=== PATIENT | female | born 1985 | race American Indian/Alaskan Native ===

== ENCOUNTER 2017-04-26 14:58 | Outpatient (CLI) | payer MEDICAID ==
[2017-04-26 15:30] VITALS: BP 119/62
[2017-04-26] MEDS ORDERED: VISTARIL ONE (17:39)
[2017-04-26] MEDS ORDERED: VISTARIL PO ONE (18:00)
== END 2017-04-26 18:00 | disposition home or self-care (01) ==
LOC: TRG 14:58
PROVIDERS: ATTEND Obstetrics & Gynecology
DX: Z34.93 Encounter for supervision of normal pregnancy, unspecified, third trimester (principal); Z3A.38 38 weeks gestation of pregnancy
CPT/HCPCS: 59025; Q0177

== ENCOUNTER 2017-05-06 11:10 | Inpatient (IN) | payer MEDICAID, OTHER ==
--- NOTE | 2017-05-06 12:36 | History and Physical Report ---
History of Present Illness Date of examination: 05/06/17 Date of admission: 05/06/17 11:12 Chief complaint: SROM at 03:00 today History of present illness: 32-year-old at 40+1 weeks presents with above complaints and issues, she is a [facility] patient. 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 denies: smoking, alcohol abuse, prescription drug abuse, IV drug use - Obstetrical History Expected Date of Delivery: 05/05/17 Actual Gestation: 40 Week(s) 1 Day(s) : 4 Para: 3 Medications and Allergies Allergies Allergy/AdvReac Type Severity Reaction Status Date / Time No Known Allergies Allergy Unverified 04/26/17 15:11 Review of Systems Constitutional: no fever, no chills, no sweats Cardiovascular: no chest pain, no orthopnea, no palpitations, no syncope, no lightheadedness, no shortness of breath Respiratory: no cough, no cough with sputum, no excessive sputum, no shortness of breath, no dyspnea on exertion Gastrointestinal: no abdominal pain, no nausea, no vomiting Genitourinary: leakage of fluid, no vaginal bleeding, no vaginal discharge - Vital Signs Vital signs: Vital Signs Pulse BP Pulse Ox 87 155/128 98 05/06/17 11:45 05/06/17 11:45 05/06/17 11:45 Temp Pulse Resp BP Pulse Ox 81 125/65 97 05/06/17 12:28 05/06/17 11:47 05/06/17 12:28 - Physical Exam Cardiovascular: Regular rate, Normal S1, Normal S2 Lungs: Positive: Clear to auscultation, Normal air movement Abdomen: Positive: normal appearance, soft. Negative: distention, tenderness, guarding, rigidity Uterus: Positive: enlarged (EFW ~ 3700) Extremities: Positive: normal - Obstetrical FHR: category 1 Cervical Dilatation: 2 (per RN) Results All other labs normal. Assessment and Plan A: 32-year-old 00 today at 40+1 week status post SROM -Cat 1 tracing P: -Admit -Obtain routine labs -Epidural when necessary -Pitocin per protocol -Anticipate normal vaginal delivery - Patient Problems (1) 40 weeks gestation of Current Visit: Yes Status: Acute (2) Spontaneous rupture of amniotic membranes Current Visit: Yes Status: Acute
[2017-05-06] MEDS ORDERED: MINERAL OIL PO PRN (12:37)
[2017-05-06] MEDS ORDERED: BRETHINE SUB-Q PRN (12:37)
[2017-05-06] MEDS ORDERED: SUBLIMAZE IV PRN (12:37)
[2017-05-06] MEDS ORDERED: BRETHINE IVP PRN (12:46)
[2017-05-06] MEDS ORDERED: ePHEDrine SULFATE IV PRN ×2 (12:47→14:08)
[2017-05-06] MEDS ORDERED: PITOCin/NS 30 UNIT/500ML 30 UNITS/500 ML BAG IV SCH (13:00)
[2017-05-06] MEDS ORDERED: XYLOCAINE 2% INFILTRATI ONE (13:00)
[2017-05-06 13:19] LABS: Hematocrit 38.6 % (30.3-42.9); Hemoglobin 12.4 gm/dl (10.1-14.3); Mean Corpuscular HGB Conc 32 % (30-34); Mean Corpuscular Hemoglobin 28 pg (28-32); Mean Corpuscular Volume 88 fl (79-97); Platelet Count 237 K/mm3 (140-440); Red Cell Distribution Width 15.2 % (13.2-15.2); White Blood Count 11.8 K/mm3 (4.5-11.0)
[2017-05-06] MEDS ORDERED: NARCAN 2 MG/2 ML IV PRN (14:03)
--- NOTE | 2017-05-06 14:03 | Anesthesia Consultation ---
Anesthesia Consult and Med Hx Date of service: 05/06/17 - Airway Anesthetic Teeth Evaluation: Good ROM Head & Neck: Adequate Mental/Hyoid Distance: Adequate Mallampati Class: Class II Intubation Access Assessment: Good - Pulmonary Exam CTA: Yes - Cardiac Exam Cardiac Exam: No Murmur - Pre-Operative Health Status ASA Pre-Surgery Classification: ASA2 Proposed Anesthetic Plan: Epidural - Pulmonary Hx Asthma: No - Cardiovascular System Hx Hypertension: No - Central Nervous System Hx Seizures: No Hx Psychiatric Problems: No - Endocrine Hx Renal Disease: No Hx Hypothyroidism: No Hx Hyperthyroidism: No - Hematic Hx Anemia: No Hx Sickle Cell Disease: No - Other Systems Hx Alcohol Use: No
[2017-05-06] MEDS: LACTATED RINGERS 1,000 ML IV SCH ×3 (14:20→18:40)
[2017-05-06] MEDS: PITOCin/NS 30 UNIT/500ML 30 UNITS/500 ML BAG IV SCH ×4 (14:33→18:50)
[2017-05-06] MEDS ORDERED: fentaNYL-BUPIV 2 MCG/ML-0.125% 200 MCG/100 ML BAG EPIDURAL SCH (15:00)
[2017-05-06] MEDS ORDERED: ePHEDrine SULFATE ONE (16:19)
--- NOTE | 2017-05-06 17:15 | Progress Note ---
Assessment and Plan A: 32-year-old 00 today at 40+1 week status post SROM -Cat 1 tracing P: -Continue present care -Anticipate normal vaginal delivery - Patient Problems (1) 40 weeks gestation of Current Visit: Yes Status: Acute (2) Spontaneous rupture of amniotic membranes Current Visit: Yes Status: Acute Subjective - Subjective Date of service: 05/06/17 Interval history: Post epidural, she is 5-6 cm and -2 station with bulging membranes Patient reports: new complaints, movement normal, contractions, no loss of fluid, no vaginal bleeding Objective - Vital Signs Vital Signs: Vital Signs - 12hr 05/06/17 05/06/17 05/06/17 11:45 11:47 12:23 Temperature Pulse Rate 94 H 85 92 H Pulse Rate [ From Monitor] Respiratory Rate Blood Pressure 155/128 125/65 Blood Pressure [Left Arm] O2 Sat by Pulse 98 99 Oximetry 05/06/17 05/06/17 05/06/17 12:28 12:33 13:15 Temperature 98.1 F Pulse Rate 81 84 80 Pulse Rate [ 83 From Monitor] Respiratory 18 Rate Blood Pressure 92/57 Blood Pressure 92/57 [Left Arm] O2 Sat by Pulse 97 97 97 Oximetry 05/06/17 05/06/17 05/06/17 14:33 14:38 14:43 Temperature Pulse Rate 88 98 H 85 Pulse Rate [ From Monitor] Respiratory Rate Blood Pressure 118/62 Blood Pressure [Left Arm] O2 Sat by Pulse 100 100 99 Oximetry 05/06/17 05/06/17 05/06/17 14:48 14:53 14:58 Temperature Pulse Rate 88 84 84 Pulse Rate [ From Monitor] Respiratory Rate Blood Pressure Blood Pressure [Left Arm] O2 Sat by Pulse 99 99 99 Oximetry 05/06/17 05/06/17 05/06/17 15:01 15:03 15:08 Temperature Pulse Rate 96 H 88 90 Pulse Rate [ From Monitor] Respiratory Rate Blood Pressure 114/59 Blood Pressure [Left Arm] O2 Sat by Pulse 99 99 Oximetry 05/06/17 05/06/17 05/06/17 15:13 15:18 15:23 Temperature Pulse Rate 83 89 89 Pulse Rate [ From Monitor] Respiratory Rate Blood Pressure Blood Pressure [Left Arm] O2 Sat by Pulse 99 99 99 Oximetry 05/06/17 05/06/17 05/06/17 15:32 15:33 15:37 Temperature Pulse Rate 96 H 69 82 Pulse Rate [ From Monitor] Respiratory Rate Blood Pressure 99/54 Blood Pressure [Left Arm] O2 Sat by Pulse 94 98 Oximetry 05/06/17 05/06/17 05/06/17 15:42 15:47 15:52 Temperature Pulse Rate 72 79 85 Pulse Rate [ From Monitor] Respiratory Rate Blood Pressure Blood Pressure [Left Arm] O2 Sat by Pulse 99 98 98 Oximetry 05/06/17 05/06/17 05/06/17 15:57 16:02 16:07 Temperature Pulse Rate 86 89 103 H Pulse Rate [ From Monitor] Respiratory Rate Blood Pressure Blood Pressure [Left Arm] O2 Sat by Pulse 98 98 98 Oximetry 05/06/17 05/06/17 05/06/17 16:12 16:17 16:25 Temperature Pulse Rate 91 H 86 88 Pulse Rate [ From Monitor] Respiratory Rate Blood Pressure Blood Pressure [Left Arm] O2 Sat by Pulse 99 98 97 Oximetry 05/06/17 05/06/17 05/06/17 16:30 16:35 16:40 Temperature Pulse Rate 84 86 83 Pulse Rate [ From Monitor] Respiratory Rate Blood Pressure Blood Pressure [Left Arm] O2 Sat by Pulse 100 99 97 Oximetry 05/06/17 05/06/17 05/06/17 16:43 16:45 16:48 Temperature Pulse Rate 84 91 H 99 H Pulse Rate [ From Monitor] Respiratory Rate Blood Pressure 122/68 124/71 Blood Pressure [Left Arm] O2 Sat by Pulse 97 Oximetry 05/06/17 05/06/17 05/06/17 16:50 16:55 16:59 Temperature Pulse Rate 104 H 106 H 96 H Pulse Rate [ From Monitor] Respiratory Rate Blood Pressure 124/71 Blood Pressure [Left Arm] O2 Sat by Pulse 100 100 Oximetry 05/06/17 05/06/17 05/06/17 17:00 17:05 17:07 Temperature Pulse Rate 97 H 83 87 Pulse Rate [ From Monitor] Respiratory Rate Blood Pressure 124/72 Blood Pressure [Left Arm] O2 Sat by Pulse 98 99 Oximetry 05/06/17 05/06/17 05/06/17 17:09 17:10 17:11 Temperature Pulse Rate 83 87 82 Pulse Rate [ From Monitor] Respiratory Rate Blood Pressure 118/71 122/68 Blood Pressure [Left Arm] O2 Sat by Pulse 99 Oximetry - Exam FHR: category 1 Cervical Dilatation: 5.5 station: -2 - Labs Labs: Abnormal Labs 05/06/17 12:56 WBC 11.8 H Laboratory Results - last 24 hr 05/06/17 05/06/17 12:56 12:56 WBC 11.8 H RBC 4.40 Hgb 12.4 Hct 38.6 MCV 88 MCH 28 MCHC 32 RDW 15.2 Plt Count 237 Blood Type B POSITIVE Antibody Screen TNR BRUCE Antibody Screen Negative
[2017-05-06] MEDS ORDERED: CYTOTEC ONE (19:28)
--- NOTE | 2017-05-06 19:51 | Procedure Note ---
OB Delivery Note - Delivery Date of Delivery: 05/06/17 Surgeon: NAKUL HOGAN Estimated blood loss: 200cc - Vaginal Delivery presentation: vertex Delivery position: OA Intrapartum events: meconium Delivery induction: none Delivery augmentation: pitocin Delivery monitor: external FHT, external uterine Route of delivery: Delivery placenta: spontaneous, adherent (bimanual performed for adherent membranes) Delivery cord: 3 umbilical vessels Episiotomy: none Delivery laceration: 1st degree Delivery repair: vicryl Anesthesia: epidural - Infant A at 1 minute: 8 at 5 minutes: 9 Infant Gender: Female (time of delivery was 19:29, infant weight was 7 lbs. 13 oz. or 3550 g)
[2017-05-06] MEDS ORDERED: TYLENOL PO PRN (19:52)
[2017-05-06] MEDS ORDERED: LANSINOH TP PRN (19:52)
[2017-05-06] MEDS ORDERED: DULCOLAX PR PRN (19:52)
[2017-05-06] MEDS ORDERED: PHENERGAN PR PRN (19:52)
[2017-05-06] MEDS ORDERED: NORCO 5/325 PO PRN (19:52)
[2017-05-06] MEDS ORDERED: PHENERGAN PO PRN (19:52)
[2017-05-06] MEDS ORDERED: TUCKS PAD TP PRN (19:52)
[2017-05-06] MEDS ORDERED: BENADRYL PO PRN (19:52)
[2017-05-06] MEDS ORDERED: MILK OF MAGNESIA PO PRN (19:52)
[2017-05-06] MEDS ORDERED: ZOFRAN IV PRN (19:52)
[2017-05-06] MEDS ORDERED: CYTOTEC PR ONE ×2 (19:52→21:00)
[2017-05-06] MEDS ORDERED: ceFAZolin 2 GM in NACL 0.9% 100 ML IV ONE (19:54)
[2017-05-06] MEDS ORDERED: SODIUM CHLORIDE FLUSH SYRINGE 10 ML IV SCH (20:00)
[2017-05-06] MEDS ORDERED: PITOCin/NS 20 UNIT/1000ML DRIP 20 UNITS/1,000 ML BAG IV SCH (20:00)
[2017-05-06] MEDS: PITOCin/NS 20 UNIT/1000ML DRIP 20 UNITS/1,000 ML BAG IV SCH ×2 (20:14→21:45)
[2017-05-06] MEDS ORDERED: DERMOPLAST TP PRN (20:15)
[2017-05-06] MEDS ORDERED: ANCEF/STERILE WATER 2 GM/20 ML 2 GM/20 ML SYRINGE IV ONE (21:00)
[2017-05-06] MEDS ORDERED: PITOCin/NS 20 UNIT/1000ML DRIP 20,000 MILLIUNITS/1,000 ML BAG IV ONE (21:42)
[2017-05-06] MEDS: SENOKOT S PO SCH (22:50)
[2017-05-06] MEDS: FEOSOL PO SCH (22:50)
[2017-05-06] MEDS: MOTRIN PO SCH (22:52)
[2017-05-06] MEDS: COLACE PO SCH (22:53)
[2017-05-07] MEDS: MOTRIN PO SCH ×4 (00:05→18:06)
[2017-05-07 08:11] LABS: Hematocrit 33.2 % (30.3-42.9); Hemoglobin 11.2 gm/dl (10.1-14.3)
--- NOTE | 2017-05-07 09:23 | Progress Note ---
Assessment and Plan PPD# 1 s/p -Doing well P: -Continue present care -Anticipate discharge in 24-48 hours - Patient Problems (1) (normal spontaneous vaginal delivery) Current Visit: Yes Status: Acute (2) 40 weeks gestation of Current Visit: Yes Status: Acute (3) Spontaneous rupture of amniotic membranes Current Visit: Yes Status: Acute Subjective - Subjective Date of service: 05/07/17 Principal diagnosis: PPD#1 Interval history: Patient seen and examined, stable doing well. Has adequate bowel bladder function, ambulating without difficulty pain well-controlled desires discharge home Patient reports: appetite normal, voiding normally, pain well controlled, flatus , ambulating normally, no dizzy ambulation, no nauseated [place]: doing well Objective - Vital Signs Latest vital signs: Vital Signs Temp Pulse Pulse Resp BP BP Pulse Ox 05/07/17 08:17 99 F 85 20 107/71 05/07/17 05:55 18 05/07/17 04:30 98.7 F 71 18 103/61 05/07/17 01:45 98.8 F 79 18 117/67 05/06/17 22:52 18 05/06/17 22:10 98.5 F 70 18 109/55 05/06/17 20:44 97.5 F L 67 71 18 108/67 108/67 98 05/06/17 20:42 70 99 05/06/17 20:37 64 99 05/06/17 20:32 69 98 05/06/17 20:30 81 120/72 05/06/17 20:28 98.3 F 77 60 18 120/72 100 05/06/17 20:27 85 98 05/06/17 20:23 90 05/06/17 20:22 71 100 05/06/17 20:17 74 99 05/06/17 20:12 70 100 05/06/17 20:07 75 99 05/06/17 20:02 80 100 05/06/17 20:00 97.6 F 77 77 18 120/64 120/64 100 05/06/17 19:57 86 100 05/06/17 19:40 98.5 F 76 18 120/64 100 05/06/17 19:25 114 H 100 05/06/17 19:20 135 H 100 05/06/17 19:15 92 H 98 05/06/17 19:10 98.6 F 81 75 18 117/61 99 05/06/17 19:05 74 99 05/06/17 19:01 75 117/61 05/06/17 19:00 74 99 05/06/17 18:55 71 98 05/06/17 18:50 96 H 99 05/06/17 18:45 88 102/55 98 17 18:40 85 98 05/06/17 18:35 77 98 05/06/17 18:32 76 122/58 05/06/17 18:30 75 98 05/06/17 18:25 80 99 05/06/17 18:20 91 H 97 05/06/17 18:17 86 112/62 05/06/17 18:15 76 97 05/06/17 18:10 76 98 05/06/17 18:05 79 99 05/06/17 18:00 76 105/59 97 05/06/17 17:55 89 98 05/06/17 17:50 86 98 05/06/17 17:45 79 110/62 98 05/06/17 17:40 84 111/62 98 05/06/17 17:35 81 117/68 98 05/06/17 17:31 78 116/60 05/06/17 17:30 73 98 05/06/17 17:29 80 116/61 05/06/17 17:27 93 H 117/68 05/06/17 17:25 76 117/62 98 05/06/17 17:24 79 120/64 05/06/17 17:21 82 112/61 05/06/17 17:20 78 98 05/06/17 17:19 83 108/61 05/06/17 17:17 73 115/60 05/06/17 17:15 94 H 112/68 97 05/06/17 17:13 83 123/67 05/06/17 17:11 82 122/68 05/06/17 17:10 87 99 05/06/17 17:09 83 118/71 05/06/17 17:07 87 124/72 05/06/17 17:05 83 99 05/06/17 17:00 97 H 98 05/06/17 16:59 96 H 124/71 17 16:55 106 H 100 05/06/17 16:50 104 H 100 05/06/17 16:48 99 H 124/71 05/06/17 16:45 98.1 F 91 H 91 H 18 122/68 97 05/06/17 16:43 84 122/68 05/06/17 16:40 83 97 05/06/17 16:35 86 99 05/06/17 16:30 84 100 05/06/17 16:25 88 97 05/06/17 16:17 86 98 05/06/17 16:12 91 H 99 05/06/17 16:07 103 H 98 05/06/17 16:02 89 98 05/06/17 15:57 86 98 05/06/17 15:52 85 98 05/06/17 15:47 79 98 05/06/17 15:42 72 99 05/06/17 15:37 82 98 05/06/17 15:33 69 99/54 05/06/17 15:32 96 H 94 05/06/17 15:23 89 99 05/06/17 15:18 89 99 05/06/17 15:13 83 99 05/06/17 15:08 90 99 05/06/17 15:03 88 99 05/06/17 15:01 96 H 114/59 05/06/17 14:58 84 99 05/06/17 14:53 84 99 05/06/17 14:48 88 99 05/06/17 14:43 85 99 05/06/17 14:38 98 H 100 05/06/17 14:33 88 118/62 100 05/06/17 13:15 98.1 F 80 83 18 92/57 92/57 97 05/06/17 12:33 84 97 05/06/17 12:28 81 97 05/06/17 12:23 92 H 99 05/06/17 11:47 85 125/65 05/06/17 11:45 94 H 155/128 98 Intake and Output 05/06/17 05/07/17 05/07/17 22:59 06:59 14:59 Intake Total 1999 840 Output Total 1100 800 Balance 900 40 Intake: IV 2000 Lactated Ringers 1,000 ml 2000 @ 125 mls/hr IV DIRECT JOHN Rx#:[id number] Intake, Free Water 840 Output: Urine 1100 800 Uretheral (Fisher) 250 Void 850 800 Other: Total, Output Amount 400 800 # Voids Void 1 1 Estimated Blood Loss 200 - Exam Abdomen: Present: normal appearance, soft. Absent: distention, tenderness, guarding Uterus: Present: fundal height below umbilicus. Absent: tenderness Extremities: Present: normal - Labs Labs: Abnormal lab results 05/06/17 Range/Units 12:56 WBC 11.8 H (4.5-11.0) K/mm3
--- NOTE | 2017-05-07 09:25 | Discharge Summary ---
Providers - Providers Date of Admission: 05/06/17 11:12 Date of discharge: 05/08/17 Attending physician: NAKUL HOGAN Primary care physician: NAKUL HOGAN Hospitalization Reason for admission: rupture of membranes Delivery: Episiotomy: none Laceration: 1st degree Incision: normal, dry Other procedures: none complications: none Discharge diagnosis: IUP at term delivered baby: female Hospital course: Uncomplicated hospital course Condition at discharge: Good Disposition: DC-01 TO HOME OR SELFCARE - Discharge Diagnoses (1) (normal spontaneous vaginal delivery) Status: Acute (2) 40 weeks gestation of Status: Acute (3) Spontaneous rupture of amniotic membranes Status: Acute Plan - Discharge Medications Prescriptions: Ibuprofen [Motrin 600 MG tab] 600 mg PO Q8H PRN #30 tablet PRN Reason: Pain Multivitamin with Iron [Multivitamins with Iron] 1 each PO DAILY #30 tablet - Provider Discharge Summary Activity: no sex for 6 weeks, no heavy lifting 4 weeks, no strenuous exercise Diet: routine Additional instructions: [] Smoking cessation referral if applicable(refer to patient education folder for contact #) [] Refer to [facility] Booklet Call your doctor immediately for: * Fever > 100.5 * Heavy vaginal bleeding ( >1 pad per hour) * Severe persistent headache * Shortness of breath * Reddened, hot, painful area to leg or breast * Drainage or odor from incision. * Keep incision clean and dry at all times and follow doctor's instructions regarding bathing/showering - Follow up plan Follow up: NAKUL HOGAN MD [Primary Care Provider] - 6 Weeks
[2017-05-07] MEDS ORDERED: PRENATAL VITAMIN PO SCH (10:00)
[2017-05-07] MEDS: COLACE PO SCH (10:39)
[2017-05-07] MEDS: FEOSOL PO SCH (10:39)
--- NOTE | 2017-05-07 15:43 | Progress Note ---
Subjective Date of service: 05/07/17 Principal diagnosis: PPD#1 Interval history: 1st day after normal vaginal delivery Patient is in the bed, relatively comfortable. Pain is well controlled with pain meds. Ambulated well. No residual neurological deficit. No anesthesia complications Objective - Constitutional Vitals: Vital Signs - 12hr 05/07/17 05/07/17 05/07/17 04:30 05:55 08:17 Temperature 98.7 F 99 F Pulse Rate [ 71 85 From Monitor] Respiratory 18 18 20 Rate Blood Pressure 103/61 107/71 [Left Arm] 05/07/17 11:45 Temperature 98.4 F Pulse Rate [ 72 From Monitor] Respiratory 18 Rate Blood Pressure 118/64 [Left Arm] - Labs CBC & Chem 7: 05/07/17 07:54
[2017-05-08] MEDS: FEOSOL PO SCH (00:05)
[2017-05-08] MEDS: MOTRIN PO SCH ×3 (00:05→12:35)
[2017-05-08] MEDS: SENOKOT S PO SCH (00:05)
[2017-05-08] MEDS: COLACE PO SCH (00:05)
[2017-05-08] MEDS ORDERED: BOOSTRIX IM ONE (06:00)
[2017-05-08 15:23] VITALS: BP 120/80
== END 2017-05-08 13:45 | disposition home or self-care (01) | DRG 775 ==
LOC: TRG 11:10 → LD 11:12 → TRG 11:54 → OB 21:39
PROVIDERS: ADMIT Obstetrics & Gynecology Gynecology; ATTEND Obstetrics & Gynecology Gynecology
PROC: 10E0XZZ Delivery of Products of Conception, External Approach (ICD-10-PCS; principal; 2017-05-06)
PROC: 0HQ9XZZ Repair Perineum Skin, External Approach (ICD-10-PCS; 2017-05-06)
PROC: 3E0S3CZ (ICD-10-PCS; 2017-05-06)
PROC: 00HU33Z Insertion of Infusion Device into Spinal Canal, Percutaneous Approach (ICD-10-PCS; 2017-05-06)
DX: O42.02 Full-term premature rupture of membranes, onset of labor within 24 hours of rupture (principal); O77.0 Labor and delivery complicated by meconium in amniotic fluid; O70.0 First degree perineal laceration during delivery; Z3A.40 40 weeks gestation of pregnancy; Z37.0 Single live birth
CPT/HCPCS: 36415; 85014; 85018; 85027; 86592; 86850; 86900; 86901; 90471; 90715; 99211; G0463; J0690; J2590; J7120

== ENCOUNTER 2021-02-19 13:34 | Emergency (ER) | payer MEDICAID, OTHER ==
[2021-02-19 13:42] VITALS: BP 123/86
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
== END 2021-02-19 15:14 | disposition home or self-care (01) ==
LOC: ED 13:34
DX: S39.012A Strain of muscle, fascia and tendon of lower back, initial encounter (principal); M25.572 Pain in left ankle and joints of left foot; Z79.899 Other long term (current) drug therapy; V49.49XA Driver injured in collision with other motor vehicles in traffic accident, initial encounter; Y92.410 Unspecified street and highway as the place of occurrence of the external cause; Y93.89 Activity, other specified; Y99.8 Other external cause status
CPT/HCPCS: 99283